=== PATIENT | male | born 1980 | race American Indian/Alaskan Native ===

== ENCOUNTER 2017-12-16 17:51 | Emergency (ER) | payer BC, OTHER ==
[2017-12-16] MEDS ORDERED: Cyclobenzaprine 10 MG Tab PO ONE (17:52)
[2017-12-16] MEDS ORDERED: Take Home: Cyclobenzaprine 10 MG Tab, 4 Tab Pack PO ONE (18:18)
--- NOTE | 2017-12-16 18:29 | EDM.PDOC ---
ED HPI GENERAL MEDICAL PROBLEM - General Stated Complaint: Back Pain Time Seen by Provider: 12/16/17 18:15 Source of Information: Reports: Patient History Limitations: Reports: No Limitations - History of Present Illness Onset Date: 12/13/17 Duration: Constant Location: Reports: Back Quality: Reports: Throbbing Severity: Moderate Improves with: Reports: None Worsens with: Reports: Movement Context: Reports: Lifting Associated Symptoms: Reports: No Other Symptoms Treatments CALL OUT CLERK: Reports: Acetaminophen - Related Data Allergies Allergy/AdvReac Type Severity Reaction Status Date / Time No Known Allergies Allergy Verified 01/18/15 13:56 Home Meds: Home Meds Aspirin [Halfprin] 81 mg PO DAILY 12/11/14 [History] Fenofibric Acid (Choline) [Trilipix] 135 cap PO DAILY 12/11/14 [History] Hydrochlorothiazide 25 mg PO DAILY 12/11/14 [History] Insulin Detemir [Levemir] 40 unit SQ BEDTIME 12/11/14 [History] Lisinopril 40 mg PO DAILY 12/11/14 [History] Simvastatin [Zocor] 20 mg PO BEDTIME 12/11/14 [History] metFORMIN HCl [Metformin HCl] 500 mg PO BID 12/11/14 [History] ED ROS GENERAL - Review of Systems Review Of Systems: See Below Constitutional: Reports: No Symptoms Respiratory: Reports: No Symptoms Cardiovascular: Reports: No Symptoms GI/Abdominal: Reports: No Symptoms : Reports: No Symptoms, Other (denies loss of bowel or bladder control) Musculoskeletal: Reports: Back Pain (denies trauma or injury. reports pain began while lifting a heavy object.) Neurological: Reports: No Symptoms, Other (denies numbness, weakness, paresthesia, difficulty walking) ED EXAM,LOWER BACK PAIN/INJURY - Physical Exam Exam: See Below Exam Limited By: No Limitations General Appearance: Alert, WD/WN, No Apparent Distress Neck: Normal Inspection, Supple, Non-Tender, Full Range of Motion Respiratory/Chest: No Respiratory Distress Cardiovascular: Normal Peripheral Pulses, Regular Rate, Rhythm Back Exam: Other (palpable spasm of the midline low back. no stepoff, deformity , s/s trauma) Extremities: Normal Inspection, Normal Range of Motion, Non-Tender, No Pedal Edema, Normal Capillary Refill Neurological: Alert, Normal Mood/Affect, Normal Dorsiflexion, CN II-XII Intact, Normal Plantar Flexion, Normal Gait, Normal Reflexes, No Motor/Sensory Deficits , Oriented x 3 Psychiatric: Normal Affect, Normal Mood Skin Exam: Warm, Dry, Intact, Normal Color, No Rash Course - Orders/Labs/Meds Meds: Medications Discontinued Medications Generic Name Dose Route Start Last Admin Trade Name Collin PRN Reason Stop Dose Admin Cyclobenzaprine HCl 3 packet 12/16/17 18:18 Take Home: Cyclobenzaprine 10 Mg, 4 Tab Pack PO 12/16/17 18:19 ONETIME ONE Departure - Departure Time of Disposition: 18:28 Disposition: Home, Self-Care 01 Condition: Good Clinical Impression: Back pain - Discharge Information Instructions: Back Pain, Adult - Assessment/Plan Plan: likely spasm. no evidence of trauma, cauda equina, or other acute / emergent pathology. Given PO cyclobenzaprine with take home pack and work excuse. Patient advised to rest, hydrate, take all Rx as directed, fu with PCP in 5-7 days, return to ED for new or worse symptoms. Patient and spouse at bedside report understanding and agreement with plan. Patient DC home stable in care of spouse.
[2017-12-16 19:05] VITALS: BP 142/89
== END 2017-12-16 18:40 | disposition home or self-care (01) ==
LOC: CC.ED 17:51
DX: M54.5 Low back pain (principal); Z79.82 Long term (current) use of aspirin; Z79.899 Other long term (current) drug therapy; Z79.84 Long term (current) use of oral hypoglycemic drugs
CPT/HCPCS: 99282; A9270-GY

== ENCOUNTER 2018-05-15 17:57 | Emergency (ER) | payer BC, OTHER ==
[2018-05-15] MEDS ORDERED: Ketorolac 10 MG Tab PO ONE (17:58)
[2018-05-15 18:03] VITALS: BP 118/73
[2018-05-15] MEDS ORDERED: Ketorolac 60 MG/2 ML SDV IM ONE (18:46)
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
[2018-05-15] MEDS ORDERED: Take Home: Ketorolac 10 MG Tab, 4 Tab Pack PO ONE (19:00)
== END 2018-05-15 19:10 | disposition home or self-care (01) ==
LOC: CC.ED 17:57
DX: M54.5 Low back pain (principal); M62.830 Muscle spasm of back; I10 Essential (primary) hypertension; E11.9 Type 2 diabetes mellitus without complications; E66.9 Obesity, unspecified; F17.210 Nicotine dependence, cigarettes, uncomplicated; Z79.4 Long term (current) use of insulin; Z79.82 Long term (current) use of aspirin; Z79.899 Other long term (current) drug therapy; V47.5XXA Car driver injured in collision with fixed or stationary object in traffic accident, initial encounter
CPT/HCPCS: 96372; 99283; A9270; J1885; J2360

== ENCOUNTER 2018-09-05 23:45 | Emergency (ER) | payer BC ==
[~2018-09-05 23:45] MED LIST: Ondansetron 4 MG/2 ML SDV IVPUSH ONE
[2018-09-05 23:50] VITALS: BP 155/82
[2018-09-06] MEDS: Sodium Chloride 0.9% 1,000 ML IV ONE (00:10)
[2018-09-06] MEDS ORDERED: Ondansetron 8 MG in Sodium Chloride 0.9% 50 ML IV ONE (00:14)
[2018-09-06] MEDS ORDERED: HYDROmorphone 1 MG/ML Syringe IVPUSH ONE ×3 (00:27→06:47)
[2018-09-06] MEDS ORDERED: Potassium Chloride 20 MEQ in Premix Bag 1 BAG IV ONE (00:32)
--- NOTE | 2018-09-06 00:48 | EDM.PDOC ---
ED HPI GENERAL MEDICAL PROBLEM - General Chief Complaint: Gastrointestinal Problem Stated Complaint: vomiting Time Seen by Provider: 09/06/18 00:21 Source of Information: Reports: Patient, Significant Other History Limitations: Reports: No Limitations - History of Present Illness INITIAL COMMENTS - FREE TEXT/NARRATIVE: States that his pain started this evening about 2100 and he started vomiting about then also. Pain is to the lower abdomen and is sharp stabbing. He did have a bowel movement at 1800 that was diarrhea. He has had some recent history of diverticulosis with abscess formation. He has a drain in his abdomen that has been present since 08/05/18 and has appt with Dr. Vides in [place] tomorrow. Drainage tube does drain a yellow-red drainage and does have small white chunks of matter noted in the tubing and bulb. He denies any fever with it. Feels he had about 6 emesis since he started vomiting. When discharged from the hospital he was on 10 days of oral cipro 500 mg bid and flagyl 500 mg tid and stopped them 08/16/18. Onset: Sudden Onset Date: 09/05/18 Onset Time: 21:00 Location: Reports: Abdomen Quality: Reports: Stabbing Associated Symptoms: Reports: Nausea/Vomiting Abdominal Pain Score (Numeric/FACES): 10 - Related Data Allergies Allergy/AdvReac Type Severity Reaction Status Date / Time No Known Allergies Allergy Verified 09/05/18 23:50 Home Meds: Home Meds Aspirin [Halfprin] 81 mg PO DAILY 12/11/14 [History] Fenofibric Acid (Choline) [Trilipix] 135 cap PO DAILY 12/11/14 [History] Hydrochlorothiazide 25 mg PO DAILY 12/11/14 [History] Insulin Detemir [Levemir] 60 unit SQ BEDTIME 12/11/14 [History] Lisinopril 40 mg PO DAILY 12/11/14 [History] metFORMIN HCl [Metformin HCl] 1,000 mg PO BID 12/11/14 [History] Saxagliptin HCl [Onglyza] 5 tab PO DAILY 12/16/17 [History] Insulin Aspart [Novolog Flexpen] 30 units SQ DAILY 12/18/17 [History] Cholecalciferol (Vitamin D3) [Vitamin D3] 1,000 units PO DAILY 09/05/18 [History ] Past Medical History HEENT History: Reports: Impaired Vision Cardiovascular History: Reports: Hypertension Respiratory History: Reports: SOB Gastrointestinal History: Reports: Diverticulosis Genitourinary History: Reports: None Musculoskeletal History: Reports: Other (See Below) Other Musculoskeletal History: knee Neurological History: Reports: None Psychiatric History: Reports: None Endocrine/Metabolic History: Reports: Diabetes, Type II, Obesity/BMI 30+ Hematologic History: Reports: None Immunologic History: Reports: None Oncologic (Cancer) History: Reports: None Dermatologic History: Reports: None - Infectious Disease History Infectious Disease History: Reports: None - Past Surgical History Head Surgeries/Procedures: Reports: None Musculoskeletal Surgical History: Reports: Arthroscopic Knee Social & Family History - Family History Family Medical History: Noncontributory - Caffeine Use Caffeine Use: Reports: Coffee ED ROS GENERAL - Review of Systems Review Of Systems: See Below Constitutional: Denies: Fever, Chills HEENT: Reports: No Symptoms Respiratory: Reports: No Symptoms Cardiovascular: Reports: No Symptoms GI/Abdominal: Reports: Abdominal Pain, Diarrhea, Nausea, Vomiting : Reports: No Symptoms Musculoskeletal: Reports: No Symptoms Skin: Reports: No Symptoms Neurological: Reports: No Symptoms ED EXAM, GI/ABD - Physical Exam Exam: See Below Exam Limited By: No Limitations General Appearance: Alert, WD/WN, Moderate Distress Ears: Normal External Exam, Normal TMs Nose: Normal Inspection Throat/Mouth: Normal Inspection, Normal Oropharynx, No Airway Compromise Head: Atraumatic, Normocephalic Neck: Normal Inspection, Supple, Non-Tender, Full Range of Motion Respiratory/Chest: No Respiratory Distress, Lungs Clear, Normal Breath Sounds Cardiovascular: Regular Rate, Rhythm, No Edema GI/Abdominal Exam: Tender (abdomen is tender to lower abdomen. Drain tube intact to lower abdomen with yellow drainage with white matter in small amount.) , Abnormal Bowel Sounds (No bowel sounds heard.) Extremities: Normal Inspection, No Pedal Edema Neurological: Alert, Oriented Skin Exam: Warm, Dry, Intact Course - Vital Signs Last Recorded V/S: Last Vital Signs Temp 98.1 F 09/05/18 23:45 Pulse 75 09/05/18 23:45 Resp 18 09/05/18 23:45 BP 155/82 H 09/05/18 23:45 Pulse Ox 100 09/05/18 23:45 - Orders/Labs/Meds Orders: Active Orders 24 hr Category Date Time Status Abdomen 2V AP Flat Upright [CR] Stat Exams 09/06/18 00:27 Taken Abdomen Pelvis w Cont [CT] Stat Exams 09/06/18 01:15 Taken CULTURE WOUND [RM] Stat Lab 09/06/18 01:16 Ordered Sodium Chloride 0.9% [Normal Saline] 1,000 ml Med 09/06/18 03:15 Active IV ASDIRECTED Medication Orders Sodium Chloride (Normal Saline) 1,000 mls @ 250 mls/hr IV ASDIRECTED [place] Last Infusion: 09/06/18 05:21 Dose: 100 mls/hr Admin: 09/06/18 03:45 Dose: 250 mls/hr Labs: Laboratory Tests 09/06/18 09/06/18 Range/Units 00:15 00:26 WBC 14.1 H (5.0-10.0) 10^3/uL RBC 5.41 (4.50-6.00) 10^6/uL Hgb 16.0 (14.0-18.0) g/dL Hct 47.2 (40.0-54.0) % MCV 87.2 (82.0-94.0) fL MCH 29.6 (27.0-32.0) pg MCHC 33.9 (33.0-38.0) g/dL RDW Coeff of [place] 15.1 H (11.0-15.0) % Plt Count 186 (150-400) 10^3/uL Neut % (Auto) 65.5 (35-85) % Lymph % (Auto) 21.7 (10-55) % [place] % (Auto) 10.8 (0-16) % Eos % (Auto) 1.6 (0-5) % Baso % (Auto) 0.4 (0-3) % Neut # (Auto) 9.26 H (1.80-7.00) 10^3/uL Lymph # (Auto) 3.06 (1.00-4.80) 10^3/uL [place] # (Auto) 1.52 H (0.00-0.80) 10^3/uL Eos # (Auto) 0.23 (0.00-0.45) 10^3/uL Baso # (Auto) 0.05 10^3/uL Sodium 142 (136-145) mEq/L Potassium 2.8 L* D (3.5-5.0) mEq/L Chloride 100 (98-106) mEq/L Carbon Dioxide 26 (21-32) mmol/L BUN 24 H (7-18) mg/dL Creatinine 1.6 H (0.7-1.3) mg/dL Est Cr Clr Drug Dosing 64.00 mL/min Estimated GFR (MDRD) 48 L (>=60) mL/min Glucose 126 H D (75-99) mg/dL Calcium 9.1 (8.4-10.1) mg/dL C-Reactive Protein 2.6 H (0.2-0.8) mg/dL Meds: Medications Generic Name Dose Route Start Last Admin Trade Name Freq PRN Reason Stop Dose Admin Sodium Chloride 1,000 mls @ 250 mls/hr 09/06/18 03:15 09/06/18 05:21 Normal Saline IV 100 mls/hr ASDIRECTED [place] Infusion Discontinued Medications Generic Name Dose Route Start Last Admin Trade Name Freq PRN Reason Stop Dose Admin Hydromorphone HCl 2 mg 09/06/18 00:27 09/06/18 00:32 Dilaudid IVPUSH 09/06/18 00:28 2 mg ONETIME ONE Administration Hydromorphone HCl 2 mg 09/06/18 03:32 09/06/18 03:39 Dilaudid IVPUSH 09/06/18 03:33 2 mg ONETIME ONE Administration Hydromorphone HCl 2 mg 09/06/18 06:47 09/06/18 06:53 Dilaudid IVPUSH 09/06/18 06:48 2 mg ONETIME ONE Administration Sodium Chloride 1,000 mls @ 999 mls/hr 09/05/18 23:59 09/06/18 01:03 Normal Saline IV 09/06/18 00:59 250 mls/hr .BOLUS ONE Infusion Ondansetron HCl 8 mg/ Sodium 54 mls @ 100 mls/hr 09/06/18 00:14 09/06/18 00: 21 Chloride IV 09/06/18 00:46 100 mls/hr Q8H ONE Administration Potassium Chloride 20 meq/ 100 mls @ 25 mls/hr 09/06/18 00:32 09/06/18 01:03 Premix IV 09/06/18 04:31 25 mls/hr ONETIME ONE Administration Iopamidol 100 ml 09/06/18 03:20 09/06/18 03:31 Isovue-300 (61%) IVPUSH 09/06/18 03:21 100 ml ONETIME ONE Administration - Re-Assessments/Exams Free Text/Narrative Re-Assessment/Exam: 09/06/18 01:10 Discussed with pt low potassium and will replace. Will have him drink contrast and CT abdomen when appropriate. Will keep as extended ER and continue on IV fluids. 09/06/[address] reviewed with pt and as normal. Bowel sounds now are active. He has some midepigastric pain at this time. Less pain across the lower abdomen that he had earlier. No change in drainage from tube. Will await the results of the culture for any treatment. VS remain stable. Departure - Departure Time of Disposition: 06:57 Disposition: Home, Self-Care 01 Condition: Good Clinical Impression: Gastroenteritis, Diverticulosis of sigmoid colon - Discharge Information *PRESCRIPTION DRUG MONITORING PROGRAM REVIEWED*: No *COPY OF PRESCRIPTION DRUG MONITORING REPORT IN PATIENT LYNNE: No Instructions: Viral Gastroenteritis, Adult Referrals: PCP,None [Primary Care Provider] - Forms: ED Department Discharge Additional Instructions: use the zofran that you have at home for the nausea keep appt with Dr in [place] this afternoon Deport 5/325 mg every 6 hours as needed for discomfort Do not eat before appt in [place] but OK to drink. - Problem List & Annotations (1) Gastroenteritis SNOMED Code(s): 93685780 Code(s): K52.9 - NONINFECTIVE GASTROENTERITIS AND COLITIS, UNSPECIFIED Status: Acute Priority: High Current Visit: Yes (2) Diverticulosis of sigmoid colon SNOMED Code(s): 582490331 Code(s): K57.30 - DVRTCLOS OF LG INT W/O PERFORATION OR ABSCESS W/O BLEEDING Status: Acute Priority: Medium Current Visit: Yes - Problem List Review Problem List Initiated/Reviewed/Updated: Yes - My Orders Last 24 Hours: My Active Orders 09/06/18 00:27 Abdomen 2V AP Flat Upright [CR] Stat 09/06/18 01:15 Abdomen Pelvis w Cont [CT] Stat 09/06/18 01:16 CULTURE WOUND [RM] Stat 09/06/18 03:15 Sodium Chloride 0.9% [Normal Saline] 1,000 ml IV ASDIRECTED - Assessment/Plan Last 24 Hours: My Active Orders 09/06/18 00:27 Abdomen 2V AP Flat Upright [CR] Stat 09/06/18 01:15 Abdomen Pelvis w Cont [CT] Stat 09/06/18 01:16 CULTURE WOUND [RM] Stat 09/06/18 03:15 Sodium Chloride 0.9% [Normal Saline] 1,000 ml IV ASDIRECTED
[2018-09-06] MEDS ORDERED: Sodium Chloride 0.9% 1,000 ML IV SCH (03:15)
[2018-09-06] MEDS ORDERED: Iopamidol 612 MG/ML 100 ML Bottle IVPUSH ONE (03:20)
== END 2018-09-06 07:15 | disposition home or self-care (01) ==
LOC: CC.ED 23:45
DX: K52.9 Noninfective gastroenteritis and colitis, unspecified (principal); K57.30 Diverticulosis of large intestine without perforation or abscess without bleeding; I10 Essential (primary) hypertension; E11.9 Type 2 diabetes mellitus without complications; Z79.82 Long term (current) use of aspirin; Z79.899 Other long term (current) drug therapy
CPT/HCPCS: 36415; 74019; 74177; 80048; 85025; 86140; 87070; 87077; 87186; 96361; 96365; 96366; 96367; 96368; 96375; 96376; 99284; J1170; J2405; J3480; J7030; J7050; Q9967

== ENCOUNTER 2018-10-23 17:28 | Emergency (ER) | payer BC ==
[2018-10-23 17:37] VITALS: BP 159/100
[2018-10-23] MEDS ORDERED: Ketorolac 10 MG Tab PO ONE (17:58)
--- NOTE | 2018-10-23 18:02 | EDM.PDOC ---
ED HPI GENERAL MEDICAL PROBLEM - General Chief Complaint: Lower Extremity Injury/Pain Stated Complaint: Hyperextended left knee Time Seen by Provider: 10/23/18 17:51 Source of Information: Reports: Patient History Limitations: Reports: No Limitations - History of Present Illness INITIAL COMMENTS - FREE TEXT/NARRATIVE: Was walking on Sunday night when he stepped off curb and hyperextended his left knee. He has been walking on it but is painful. Has noted that the anterior knee is swollen. Has bruising to the front and lateral aspect of knee. No numbness or tingling noted. Onset: Gradual Location: Reports: Lower Extremity, Left Quality: Reports: Throbbing Worsens with: Reports: Movement Left Knee Pain Score (Numeric/FACES): 6 - Related Data Allergies Allergy/AdvReac Type Severity Reaction Status Date / Time No Known Allergies Allergy Verified 10/23/18 17:34 Home Meds: Home Meds Aspirin [Halfprin] 81 mg PO DAILY 12/11/14 [History] Fenofibric Acid (Choline) [Trilipix] 135 cap PO DAILY 12/11/14 [History] Hydrochlorothiazide 25 mg PO DAILY 12/11/14 [History] Insulin Detemir [Levemir] 60 unit SQ BEDTIME 12/11/14 [History] Lisinopril 40 mg PO DAILY 12/11/14 [History] metFORMIN HCl [Metformin HCl] 1,000 mg PO BID 12/11/14 [History] Saxagliptin HCl [Onglyza] 5 tab PO DAILY 12/16/17 [History] Insulin Aspart [Novolog Flexpen] 30 units SQ DAILY 12/18/17 [History] Cholecalciferol (Vitamin D3) [Vitamin D3] 1,000 units PO DAILY 09/05/18 [History ] Past Medical History HEENT History: Reports: Impaired Vision Cardiovascular History: Reports: Hypertension Respiratory History: Reports: SOB Gastrointestinal History: Reports: Diverticulosis Genitourinary History: Reports: None Musculoskeletal History: Reports: Other (See Below) Other Musculoskeletal History: knee Neurological History: Reports: None Psychiatric History: Reports: Addiction Other Psychiatric History: alcoholism Endocrine/Metabolic History: Reports: Diabetes, Type II, Obesity/BMI 30+ Hematologic History: Reports: None Immunologic History: Reports: None Oncologic (Cancer) History: Reports: None Dermatologic History: Reports: None - Infectious Disease History Infectious Disease History: Reports: None - Past Surgical History Head Surgeries/Procedures: Reports: None Musculoskeletal Surgical History: Reports: Arthroscopic Knee Social & Family History - Family History Family Medical History: Noncontributory - Tobacco Use Smoking Status *Q: Current Every Day Smoker Years of Tobacco use: 25 Packs/Tins Daily: 0.5 - Caffeine Use Caffeine Use: Reports: Coffee - Recreational Drug Use Recreational Drug Use: No Review of Systems - Review of Systems Review Of Systems: See Below Musculoskeletal: Reports: Joint Pain (left knee) ED EXAM, GENERAL - Physical Exam Exam: See Below Exam Limited By: No Limitations General Appearance: Alert, WD/WN, Mild Distress Extremities: Joint Swelling (left knee is mildly swollen with bruising to the lateral and anterior knee. No numbness and tingling noted. Has increase in tenderness with movement on exam. Difficult to complete exam as it causes increase in pain with movement.) Skin Exam: Warm, Dry, Intact Course - Vital Signs Last Recorded V/S: Last Vital Signs Temp 97 F 10/23/18 17:35 Pulse 70 10/23/18 17:35 Resp 18 10/23/18 17:35 BP 159/100 H 10/23/18 17:35 Pulse Ox 94 L 10/23/18 17:35 - Orders/Labs/Meds Meds: Medications Discontinued Medications Generic Name Dose Route Start Last Admin Trade Name Collin PRN Reason Stop Dose Admin Ketorolac Tromethamine 10 mg 10/23/18 17:58 10/23/18 18:02 Toradol PO 10/23/18 17:59 10 mg ONETIME ONE Administration Departure - Departure Time of Disposition: 17:56 Disposition: Home, Self-Care 01 Condition: Good Clinical Impression: Hyperextension injury of left knee Qualifiers: Encounter type: initial encounter Qualified Code(s): S89.82XA - Other specified injuries of left lower leg, initial encounter - Discharge Information *PRESCRIPTION DRUG MONITORING PROGRAM REVIEWED*: Not Applicable *COPY OF PRESCRIPTION DRUG MONITORING REPORT IN PATIENT LYNNE: Not Applicable Referrals: PCP,None [Primary Care Provider] - Forms: ED Department Discharge - Problem List & Annotations (1) Hyperextension injury of left knee SNOMED Code(s): 161201279 Code(s): S89.82XA - OTHER SPECIFIED INJURIES OF LEFT LOWER LEG, INIT ENCNTR Status: Acute Priority: High Qualifiers: Encounter type: initial encounter Qualified Code(s): S89.82XA - Other specified injuries of left lower leg, initial encounter - Problem List Review Problem List Initiated/Reviewed/Updated: Yes
== END 2018-10-23 18:06 | disposition home or self-care (01) ==
LOC: CC.ED 17:28
DX: S89.92XA Unspecified injury of left lower leg, initial encounter (principal); I10 Essential (primary) hypertension; E11.9 Type 2 diabetes mellitus without complications; F17.210 Nicotine dependence, cigarettes, uncomplicated; X50.9XXA Other and unspecified overexertion or strenuous movements or postures, initial encounter; Z79.82 Long term (current) use of aspirin; Z79.899 Other long term (current) drug therapy; Z79.4 Long term (current) use of insulin
CPT/HCPCS: 73562-LT; 99283-25; A9270-GY

== ENCOUNTER 2022-12-22 12:45 | Inpatient (IN) | payer BC, MEDICAID, OTHER ==
[2022-12-22] MEDS ORDERED: HYDROmorphone 0.5 MG/0.5 ML Syringe IVPUSH ONE (13:13)
[2022-12-22] MEDS ORDERED: Sodium Chloride 0.9% 1,000 ML IV ONE (13:13)
[2022-12-22] MEDS ORDERED: Sodium Chloride 0.9% 10 ML Syringe FLUSH PRN (13:13)
[2022-12-22] MEDS ORDERED: Ondansetron 4 MG/2 ML SDV IVPUSH STA (13:14)
[2022-12-22] MEDS ORDERED: Iopamidol 755 Mg/ML 100 ML Bottle IVPUSH ONE (13:26)
[2022-12-22 13:39] LABS: BASOPHILS ABSOLUTE AUTO 0.05 10^3/uL (0.00-0.50); BASOPHILS PERCENT AUTO 0.3 % (0-1); EOSINOPHILS ABSOLUTE AUTO 0.16 10^3/uL (0.00-1.50); EOSINOPHILS PERCENT AUTO 0.9 % (0-6); HEMATOCRIT 50.9 % (42.0-52.0); HEMOGLOBIN 17.6 g/dL (14.0-18.0); IMMATURE GRAN ABSOLUTE AUTO 0.03 10^3/uL (0.00-0.49); IMMATURE GRAN PERCENT AUTO 0.2 % (0.0-4.9); LYMPHOCYTES ABSOLUTE AUTO 1.02 10^3/uL (0.60-5.00); LYMPHOCYTES PERCENT AUTO 5.7 % (24-44); MEAN CORPUSCULAR HEMOGLOBIN 29.2 pg (27.0-32.0); MEAN CORPUSCULAR HGB CONC 34.6 g/dL (32.0-36.0); MEAN CORPUSCULAR VOLUME 84.6 fL (83.0-97.0); MONOCYTES PERCENT AUTO 4.5 % (0-10); NEUTROPHILS ABSOLUTE AUTO 15.87 x10^3/uL (1.80-8.00); NEUTROPHILS PERCENT AUTO 88.4 % (41-71); PLATELET COUNT,PLT 187 10^3/uL (150-400); RED BLOOD CELL COUNT 6.02 x10^6/uL (4.50-6.00); WHITE BLOOD CELL COUNT,WBC 17.9 10^3/uL (4.0-11.0)
[2022-12-22 13:56] LABS: LACTIC ACID 2.7 mmol/L (0.4-2.0)
[2022-12-22 14:00] LABS: ALANINE AMINOTRANSFERASE,ALT 221 U/L (12-78); ALBUMIN 3.9 g/dL (3.4-5.0); ALKALINE PHOSPHATASE 126 U/L (46-116); BILIRUBIN TOTAL 2.2 mg/dL (0.0-1.0); BLOOD UREA NITROGEN,BUN 3 mg/dL (7-18); CARBON DIOXIDE,CO2 24 mmol/L (21-32); CHLORIDE,CL 103 mEq/L (98-106); CREATININE 0.8 mg/dL (0.7-1.3); EST CRCL DRUG DOSING (CG) 122.93 mL/min; GLUCOSE RANDOM 172 mg/dL (75-99); POTASSIUM,K 3.3 mEq/L (3.5-5.0); PROTEIN TOTAL,TP 7.9 g/dL (6.4-8.2); SODIUM,NA 141 mEq/L (136-145)
[2022-12-22] MEDS ORDERED: HYDROmorphone 1 MG/ML Syringe IVPUSH ONE (14:03)
[2022-12-22 14:07] LABS: ESTIMATED GFR 113 mL/min (>=60)
[2022-12-22 14:11] LABS: ASPARTATE AMNIOTRANSFERASE,AST 216 U/L (15-37)
[2022-12-22 14:12] LABS: C-REACTIVE PROTEIN < 0.2 mg/dL (0.2-0.8)
[2022-12-22 14:35] LABS: LIPASE 22408 U/L (73-393)
[2022-12-22 14:36] LABS: AMYLASE 2619 U/L (25-115)
[2022-12-22] MEDS ORDERED: Sodium Chloride 0.9% 1,000 ML IV SCH (15:25)
[2022-12-22] MEDS ORDERED: Glucagon,Human Recombinant 1 MG Vial IM PRN (15:27)
[2022-12-22] MEDS ORDERED: 50% Dextrose in Water 50 ML Syringe IVPUSH PRN (15:27)
[2022-12-22] MEDS: METRONIDAZOLE IV SCH ×2 (15:37→20:59)
[2022-12-22] MEDS: NORMAL SALINE IV SCH ×2 (15:37→20:59)
[2022-12-22] MEDS: Ondansetron 4 MG/2 ML SDV IV PRN ×2 (16:13→20:00)
[2022-12-22] MEDS: Insulin Regular, Human 100 Units/ML 3 ML Vial SUBCUT SCH ×2 (16:40→19:24)
[2022-12-22] MEDS ORDERED: metFORMIN 500 MG Tab PO SCH (17:00)
[2022-12-22] MEDS: HYDROmorphone 1 MG/ML Syringe IVPUSH PRN ×3 (17:58→22:23)
[2022-12-22] MEDS: Sodium Chloride 0.9% 1,000 ML IV SCH (18:15)
[2022-12-22 23:38] LABS: APPEARANCE,URINE CLEAR (CLEAR); BILIRUBIN,URINE NEGATIVE (NEGATIVE); COLOR,URINE ORANGE (YELLOW); GLUCOSE,URINE NEGATIVE (NEGATIVE); KETONES,URINE NEGATIVE (NEGATIVE); LEUKOCYTE ESTERASE,URINE NEGATIVE (NEGATIVE); NITRITE,URINE NEGATIVE (NEGATIVE); OCCULT BLOOD,URINE NEGATIVE (NEGATIVE); PH,URINE 5.5 (4.5-8.0); PROTEIN,URINE NEGATIVE (NEGATIVE)
[2022-12-23] MEDS: HYDROmorphone 1 MG/ML Syringe IVPUSH PRN ×3 (00:11→06:42)
[2022-12-23] MEDS: Ondansetron 4 MG/2 ML SDV IV PRN ×2 (00:11→06:42)
[2022-12-23] MEDS: NORMAL SALINE IV SCH ×3 (03:05→16:30)
[2022-12-23] MEDS: METRONIDAZOLE IV SCH ×3 (03:05→16:30)
[2022-12-23] MEDS: Sodium Chloride 0.9% 1,000 ML IV SCH ×2 (06:43→16:27)
[2022-12-23 07:33] LABS: BASOPHILS ABSOLUTE AUTO 0.04 10^3/uL (0.00-0.50); BASOPHILS PERCENT AUTO 0.4 % (0-1); EOSINOPHILS PERCENT AUTO 1.8 % (0-6); HEMATOCRIT 45.7 % (42.0-52.0); HEMOGLOBIN 15.3 g/dL (14.0-18.0); IMMATURE GRAN ABSOLUTE AUTO 0.01 10^3/uL (0.00-0.49); IMMATURE GRAN PERCENT AUTO 0.1 % (0.0-4.9); LYMPHOCYTES ABSOLUTE AUTO 1.58 10^3/uL (0.60-5.00); LYMPHOCYTES PERCENT AUTO 14.4 % (24-44); MEAN CORPUSCULAR HEMOGLOBIN 29.4 pg (27.0-32.0); MEAN CORPUSCULAR HGB CONC 33.5 g/dL (32.0-36.0); MEAN CORPUSCULAR VOLUME 87.9 fL (83.0-97.0); MONOCYTES ABSOLUTE AUTO 1.06 10^3/uL (0.00-1.50); MONOCYTES PERCENT AUTO 9.6 % (0-10); NEUTROPHILS ABSOLUTE AUTO 8.12 x10^3/uL (1.80-8.00); NEUTROPHILS PERCENT AUTO 73.7 % (41-71); PLATELET COUNT,PLT 163 10^3/uL (150-400)
[2022-12-23] MEDS: Cholecalciferol (Vitamin D3) 25 MCG Tab PO SCH (07:59)
[2022-12-23] MEDS: Aspirin 81 MG Tab.EC PO SCH (07:59)
[2022-12-23] MEDS ORDERED: metFORMIN 500 MG Tab PO SCH (08:00)
[2022-12-23] MEDS: Lisinopril 20 MG Tab PO SCH (08:00)
[2022-12-23 08:36] LABS: ALBUMIN 3.2 g/dL (3.4-5.0); BILIRUBIN TOTAL 4.7 mg/dL (0.0-1.0); CALCIUM 8.2 mg/dL (8.4-10.1); CREATININE 0.8 mg/dL (0.7-1.3); EST CRCL DRUG DOSING (CG) 122.93 mL/min; MAGNESIUM 1.7 mg/dL (1.8-2.4); PROTEIN TOTAL,TP 6.7 g/dL (6.4-8.2)
[2022-12-23 09:17] LABS: POTASSIUM,K 3.3 mEq/L (3.5-5.0)
[2022-12-23] MEDS: Insulin Regular, Human 100 Units/ML 3 ML Vial SUBCUT SCH ×4 (09:41→19:53)
[2022-12-23] MEDS ORDERED: Enoxaparin 40 MG/0.4 ML Syringe SUBCUT SCH (12:00)
[2022-12-24 07:30] LABS: BASOPHILS ABSOLUTE AUTO 0.05 10^3/uL (0.00-0.50); BASOPHILS PERCENT AUTO 0.6 % (0-1); EOSINOPHILS ABSOLUTE AUTO 0.26 10^3/uL (0.00-1.50); EOSINOPHILS PERCENT AUTO 3.2 % (0-6); HEMATOCRIT 46.2 % (42.0-52.0); HEMOGLOBIN 15.8 g/dL (14.0-18.0); IMMATURE GRAN ABSOLUTE AUTO 0.01 10^3/uL (0.00-0.49); IMMATURE GRAN PERCENT AUTO 0.1 % (0.0-4.9); LYMPHOCYTES ABSOLUTE AUTO 1.92 10^3/uL (0.60-5.00); LYMPHOCYTES PERCENT AUTO 23.9 % (24-44); MEAN CORPUSCULAR HEMOGLOBIN 30.3 pg (27.0-32.0); MEAN CORPUSCULAR HGB CONC 34.2 g/dL (32.0-36.0); MEAN CORPUSCULAR VOLUME 88.5 fL (83.0-97.0); MONOCYTES ABSOLUTE AUTO 0.73 10^3/uL (0.00-1.50); MONOCYTES PERCENT AUTO 9.1 % (0-10); NEUTROPHILS ABSOLUTE AUTO 5.08 x10^3/uL (1.80-8.00); NEUTROPHILS PERCENT AUTO 63.1 % (41-71); PLATELET COUNT,PLT 167 10^3/uL (150-400); RED BLOOD CELL COUNT 5.22 x10^6/uL (4.50-6.00); WHITE BLOOD CELL COUNT,WBC 8.1 10^3/uL (4.0-11.0)
[2022-12-24] MEDS: Cholecalciferol (Vitamin D3) 25 MCG Tab PO SCH (07:43)
[2022-12-24] MEDS: Lisinopril 20 MG Tab PO SCH (07:44)
[2022-12-24] MEDS: Aspirin 81 MG Tab.EC PO SCH (07:44)
[2022-12-24 07:45] VITALS: BP 128/83
[2022-12-24] MEDS: Insulin Regular, Human 100 Units/ML 3 ML Vial SUBCUT SCH (07:45)
[2022-12-24 08:07] VITALS: PULSE 64
[2022-12-24 08:58] LABS: ALBUMIN 3.1 g/dL (3.4-5.0); BILIRUBIN TOTAL 1.4 mg/dL (0.0-1.0); CALCIUM 8.2 mg/dL (8.4-10.1); CREATININE 0.7 mg/dL (0.7-1.3); EST CRCL DRUG DOSING (CG) 140.5 mL/min; MAGNESIUM 1.7 mg/dL (1.8-2.4); POTASSIUM,K 3.9 mEq/L (3.5-5.0); PROTEIN TOTAL,TP 6.8 g/dL (6.4-8.2)
== END 2022-12-24 09:34 | disposition home or self-care (01) | DRG 439 ==
LOC: CC.ED 12:45 → CC.MS 14:52 → UNDOADMIN 14:52 → CC.MS 15:11
PROVIDERS: ADMIT Nurse Practitioner Family; ATTEND Nurse Practitioner Family
DX: K85.20 Alcohol induced acute pancreatitis without necrosis or infection (principal); E87.20 Acidosis, unspecified; I10 Essential (primary) hypertension; E66.9 Obesity, unspecified; E11.9 Type 2 diabetes mellitus without complications; D72.829 Elevated white blood cell count, unspecified; R79.89 Other specified abnormal findings of blood chemistry; F10.11 Alcohol abuse, in remission; R74.8 Abnormal levels of other serum enzymes; Z90.49 Acquired absence of other specified parts of digestive tract; Z79.82 Long term (current) use of aspirin; Z79.4 Long term (current) use of insulin; Z79.899 Other long term (current) drug therapy; Z79.84 Long term (current) use of oral hypoglycemic drugs; Z98.890 Other specified postprocedural states; Z68.38 Body mass index [BMI] 38.0-38.9, adult; Z86.16 Personal history of COVID-19
CPT/HCPCS: 36415; 74177; 80053; 81003; 82150; 82947; 83605; 83690; 83735; 85025; 86140; 87040; 96361; 96374; 96375; 96376; 99223; 99233; 99238; 99285-25; A9270-GY; J1170; J1650; J1815-GY; J2405; J3490; J7030; Q9967